=== PATIENT | male | born 1950 | race Caucasian/White ===

== ENCOUNTER 2016-07-21 01:15 | Inpatient (IN) | payer MEDICARE ==
[~2016-07-21] VITALS: Ht 177.8 cm; Wt 92.5 kg
[2016-07-21] VITALS (21 sets, daily range): BP systolic 132–169; BP diastolic 58–98; PULSE 64–82; RESP 16–20; TEMP 98.3–98.8; O2SAT 94–98
[2016-07-21] MEDS ORDERED: ASPIRIN 325 MG TAB ONE (01:57)
[2016-07-21] MEDS ORDERED: NITROGLYCERIN 2% OINT 1 GM PACKET ONE (01:57)
[2016-07-21 02:58] LABS: APTT (PATIENT) 27.3 SEC (24.3-30.1); PROTHROMBIN TIME - PATIENT 10.8 SEC (9.8-11.6)
[2016-07-21 03:01] LABS: AUTOMATED NEUTROPHIL # 6.4 TH/MM3 (1.8-7.7); BASOPHIL # 0.1 TH/MM3 (0-0.2); EOSINOPHIL # 0.3 TH/MM3 (0-0.4); EOSINOPHIL % 2.6 % (0.0-4.0); HEMO FLAGS DIFF FINAL; LYMPH % 30.9 % (9.0-44.0); LYMPHOCYTE # 3.4 TH/MM3 (1.0-4.8); MEAN CELL VOLUME 83.8 FL (80.0-100.0); MEAN CORPUSCULAR HEMOGLOBIN 28.8 PG (27.0-34.0); MEAN CORPUSCULAR HGB CONC 34.4 % (32.0-36.0); MONO % 8.3 % (0.0-8.0); NEUT % 57.2 % (16.0-70.0); PLATELET COUNT 270 TH/MM3 (150-450); RED BLOOD COUNT 5.49 MIL/MM3 (4.50-5.90); RED CELL DISTRIBUTION WIDTH 14.2 % (11.6-17.2); WHITE BLOOD COUNT 11.1 TH/MM3 (4.0-11.0)
[2016-07-21 03:14] LABS: BLOOD UREA NITROGEN 23 MG/DL (7-18); GLOMERULAR FILTRATION RATE 44 ML/MIN (>89)
[2016-07-21 03:15] LABS: ALKALINE PHOSPHATASE 66 U/L (45-117); ALT (GPT) 56 U/L (12-78); ANION GAP 10 MEQ/L (5-15); AST (GOT) 31 U/L (15-37); BICARBONATE 26.4 MEQ/L (21.0-32.0); CHLORIDE 104 MEQ/L (98-107); CREATINE KINASE 190 U/L (39-308); POTASSIUM 3.6 MEQ/L (3.5-5.1); SODIUM (NA) 140 MEQ/L (136-145); TOTAL BILIRUBIN ADULT 0.3 MG/DL (0.2-1.0)
[2016-07-21] MEDS ORDERED: MORPHINE SULFATE 4 MG/ML INJ IV PRN (03:45)
[2016-07-21] MEDS ORDERED: ACETAMINOPHEN 325 MG TAB PO PRN (03:45)
[2016-07-21] MEDS ORDERED: BISACODYL 10 MG SUPP PR PRN (03:45)
[2016-07-21] MEDS ORDERED: SODIUM CHLORIDE 0.9% FLUSH 5 ML FLUSH FLUSH PRN (03:45)
[2016-07-21] MEDS ORDERED: ONDANSETRON HCL 4 MG/2 ML VIAL IVP PRN (03:45)
[2016-07-21] MEDS ORDERED: SIMV40TA PO (04:11)
[2016-07-21] MEDS ORDERED: FURO40TA PO (04:11)
[2016-07-21] MEDS ORDERED: ALPR0.25 PO (04:11)
[2016-07-21] MEDS ORDERED: FENO160T PO (04:11)
[2016-07-21] MEDS ORDERED: POTA-163 PO (04:11)
[2016-07-21] MEDS ORDERED: METO50TA PO (04:11)
[2016-07-21] MEDS ORDERED: AMLO10TA2 PO (04:11)
[2016-07-21] MEDS ORDERED: LISI40TA PO (04:11)
[2016-07-21] MEDS ORDERED: HYDR50TA15 PO (04:11)
--- NOTE | 2016-07-21 04:11 | PD ---
HPI Chief Complaint: Chest Pain Time Seen by Provider: 03:32 Travel History International Travel<30 days: No Contact w/Intl Traveler<30days: No Traveled to known affect area: No History of Present Illness HPI 66-year-old male presents from triage with complaint of chest pain that started today. He took an aspirin yesterday but has not taken one yet early this morning. 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 He states he recently moved here. He notes a bad heart attack in the 80s where he had to have angioplasty of his LAD and bypassing. He states that he had a heart workup in November that was okay with a stress test. He denies other concurrent complaints other than shortness of breath. Quality is pressure. Severity is moderate. Pain is worse with movement. He denies other modifying factors. PFSH Past Medical History Coronary Artery Disease: Yes Diabetes: Yes (type 2) Patient Takes Glucophage: No Hypertension: Yes Immunizations Current: Yes Myocardial Infarction: Yes Tetanus Vaccination: Unknown Influenza Vaccination: Yes Past Surgical History Coronary Artery Bypass Graft: Yes Social History Alcohol Use: No Tobacco Use: No Substance Use: No Allergies-Medications (Allergen,Severity, Reaction): Coded Allergies: No Known Allergies (Unverified , 07/21/16) Reported Meds & Prescriptions Reported Meds & Active Scripts Active Reported Alprazolam 0.25 Mg Tab 0.25 Mg PO Q6H PRN Potassium Chloride ER (Potassium Chloride) 20 Meq Tab 20 Meq PO DAILY Furosemide 40 Mg Tab 40 Mg PO DAILY Fenofibrate 160 Mg Tab 160 Mg PO DAILY Simvastatin 40 Mg Tab 40 Mg PO HS Amlodipine (Amlodipine Besylate) 10 Mg Tab 10 Mg PO DAILY Lisinopril 40 Mg Tab 40 Mg PO DAILY Metoprolol Tartrate 50 Mg Tab 50 Mg PO BID Hydralazine (Hydralazine HCl) 50 Mg Tab 50 Mg PO BID Take with a meal Review of Systems Except as stated in HPI: all other systems reviewed are Neg Physical Exam Narrative GENERAL: Well-nourished, well-developed patient. SKIN: Warm and dry. HEAD: Normocephalic and atraumatic. EYES: No injection or drainage. ENT: No nasal drainage noted. NECK: Supple, trachea midline. CARDIOVASCULAR: Regular rate and rhythm RESPIRATORY: Breath sounds equal bilaterally at apices. No accessory muscle use. GASTROINTESTINAL: Abdomen soft, non-tender, nondistended. NEUROLOGICAL: Awake and alert. Motor and sensory grossly within normal limits. Normal speech. Data Data Last Documented VS Vital Signs Date Time Temp Pulse Resp B/P Pulse Ox O2 Delivery O2 Flow Rate FiO2 07/21/16 02:00 67 18 98 Room Air 07/21/16 02:00 98.3 148/58 Orders Complete Blood Count With Diff (07/21/16 01:27) Creatine Kinase (Cpk) (07/21/16 01:27) Comprehensive Metabolic Panel (07/21/16 01:27) Troponin I (07/21/16 01:27) B-Type Natriuretic Peptide (07/21/16 01:27) Act Partial Throm Time (Ptt) (07/21/16 01:27) Prothrombin Time / Inr (Pt) (07/21/16 01:27) Admit Order (Ed Use Only) (07/21/16 03:32) Consult Cardiology (07/21/16 ) Labs Laboratory Tests Test 07/21/16 01:27 White Blood Count 11.1 TH/MM3 Red Blood Count 5.49 MIL/MM3 Hemoglobin 15.8 GM/DL Hematocrit 46.0 % Mean Corpuscular Volume 83.8 FL Mean Corpuscular Hemoglobin 28.8 PG Mean Corpuscular Hemoglobin 34.4 % Concent Red Cell Distribution Width 14.2 % Platelet Count 270 TH/MM3 Mean Platelet Volume 7.8 FL Neutrophils (%) (Auto) 57.2 % Lymphocytes (%) (Auto) 30.9 % Monocytes (%) (Auto) 8.3 % Eosinophils (%) (Auto) 2.6 % Basophils (%) (Auto) 1.0 % Neutrophils # (Auto) 6.4 TH/MM3 Lymphocytes # (Auto) 3.4 TH/MM3 Monocytes # (Auto) 0.9 TH/MM3 Eosinophils # (Auto) 0.3 TH/MM3 Basophils # (Auto) 0.1 TH/MM3 CBC Comment DIFF FINAL Differential Comment Prothrombin Time 10.8 SEC Prothromb Time International 1.0 RATIO Ratio Activated Partial 27.3 SEC Thromboplast Time Sodium Level 140 MEQ/L Potassium Level 3.6 MEQ/L Chloride Level 104 MEQ/L Carbon Dioxide Level 26.4 MEQ/L Anion Gap 10 MEQ/L Blood Urea Nitrogen 23 MG/DL Creatinine 1.59 MG/DL Estimat Glomerular Filtration 44 ML/MIN Rate Random Glucose 158 MG/DL Calcium Level 9.5 MG/DL Total Bilirubin 0.3 MG/DL Aspartate Amino Transf 31 U/L (AST/SGOT) Alanine Aminotransferase 56 U/L (ALT/SGPT) Alkaline Phosphatase 66 U/L Total Creatine Kinase 190 U/L Troponin I 0.27 NG/ML Total Protein 8.5 GM/DL Albumin 4.1 GM/DL MDM Medical Decision Making Medical Screen Exam Complete: Yes Emergency Medical Condition: Yes Medical Record Reviewed: Yes (past history confirmed) Interpretation(s) EKG shows normal sinus rhythm at 80 with minimal elevation in lead 3, T wave inversion in aVL CBC & BMP Diagram 07/21/16 01:27 Troponin is elevated at 0.27 Chest x-ray without emergent findings Differential Diagnosis AL, musculoskeletal, gastritis, heart failure.... Narrative Course Will check blood work, chest x-ray, EKG and dose with aspirin and nitroglycerin and reevaluate on reevaluation feeling better, will discuss with his hip hop dancer and admit, patient updated and agrees to plan Physician Communication Physician Communication dr stratton who is covering requests heparin and consult placed to them, will see in am dr kearns agrees to admit Diagnosis Primary Impression: Unstable angina Admitting Information Admitting Physician Requests: Admit Sulma Bertrand MD Jul 21, 2016 04:11
[2016-07-21] MEDS ORDERED: HEPARIN-D5W INJ 250 ML IV SCH (04:15)
[2016-07-21] MEDS ORDERED: HEPARIN SODIUM - IV 10,000 UNITS/10 ML VIAL IV ONE (04:15)
[2016-07-21] MEDS: SODIUM CHLOR 0.9% 1000 ML INJ 1,000 ML IV SCH ×3 (04:22→23:43)
--- NOTE | 2016-07-21 04:35 | HHI.HP ---
[facility] Tiffanie Mcintosh MD Admission Diagnosis unstable angina Diagnoses: (1) Unstable angina Diagnosis: Principal (2) Renal insufficiency Diagnosis: Principal (3) HTN (hypertension) Diagnosis: Principal (4) DM (diabetes mellitus) Diagnosis: Principal Travel History International Travel<30 Days: No Contact w/Intl Traveler <30 Da: No Traveled to Known Affected Are: No History of Present Illness This is a 66-year-old male with a PMH of HTN, CAD s/p CABG and DM who came to the ER w/ complaints of chest pain starting yesterday morning. Took ASA at that time w/ some improvement, however symptoms recurred today. No associated SOB or cough. Follows w/ Dr. Denney as outpatient w/ Stress Test 11/2015 negative per patient. S/p ASA and NTG in ER w/ significant improvement, currently chest pain free. On arrival, BP 148/58, HR 67, O2 sat 98% on RA, Afebrile. WBC 11.1. Creatinine 1.59, no previous labs for comparison. Troponin 0.27. Dr. Latif consulted by ER physician, recommended admission for further cardiac work up and Heparin gtt. Review of Systems Other ROS: 14 point review of systems otherwise negative. Past Family Social History Past Medical History PMH: HTN, CAD s/p CABG and DM Past Surgical History PAST SURGICAL HISTORY: CABG Allergies: Coded Allergies: No Known Allergies (Unverified , 07/21/16) Family History PAST FAMILY HISTORY: Reviewed, positive for DM and CAD. Social History PAST SOCIAL HISTORY: Negative for alcohol, tobacco or drugs. Physical Exam Vital Signs Vital Signs Date Time Temp Pulse Resp B/P Pulse Ox O2 Delivery O2 Flow Rate FiO2 07/21/16 04:13 71 16 140/85 98 Room Air 07/21/16 02:00 67 18 98 Room Air 07/21/16 02:00 98.3 67 18 148/58 97 Room Air Physical Exam PE: GENERAL: Pleasant middle-aged white male in no acute distress. HEENT: PERRLA, EOMI. No scleral icterus or conjunctival pallor. No lid lag or facial droop. CARDIOVASCULAR: Regular rate and rhythm. No obvious murmurs to auscultation. No chest tenderness to palpation. RESPIRATORY: No obvious rhonchi or wheezing. Clear to auscultation. Breath sounds equal bilaterally. GASTROINTESTINAL: Abdomen soft, non-tender, nondistended. BS normal. MUSCULOSKELETAL: Extremities without clubbing, cyanosis, or edema. No obvious deformities. NEUROLOGICAL: Awake, alert and oriented x4. No focal neurologic deficits. Moving both upper and lower extremities spontaneously. Laboratory Laboratory Tests Test 07/21/16 01:27 White Blood Count 11.1 Red Blood Count 5.49 Hemoglobin 15.8 Hematocrit 46.0 Mean Corpuscular Volume 83.8 Mean Corpuscular Hemoglobin 28.8 Mean Corpuscular Hemoglobin 34.4 Concent Red Cell Distribution Width 14.2 Platelet Count 270 Mean Platelet Volume 7.8 Neutrophils (%) (Auto) 57.2 Lymphocytes (%) (Auto) 30.9 Monocytes (%) (Auto) 8.3 Eosinophils (%) (Auto) 2.6 Basophils (%) (Auto) 1.0 Neutrophils # (Auto) 6.4 Lymphocytes # (Auto) 3.4 Monocytes # (Auto) 0.9 Eosinophils # (Auto) 0.3 Basophils # (Auto) 0.1 CBC Comment DIFF FINAL Differential Comment Prothrombin Time 10.8 Prothromb Time International 1.0 Ratio Activated Partial 27.3 Thromboplast Time Sodium Level 140 Potassium Level 3.6 Chloride Level 104 Carbon Dioxide Level 26.4 Anion Gap 10 Blood Urea Nitrogen 23 Creatinine 1.59 Estimat Glomerular Filtration 44 Rate Random Glucose 158 Calcium Level 9.5 Total Bilirubin 0.3 Aspartate Amino Transf 31 (AST/SGOT) Alanine Aminotransferase 56 (ALT/SGPT) Alkaline Phosphatase 66 Total Creatine Kinase 190 Troponin I 0.27 Total Protein 8.5 Albumin 4.1 Result Diagram: 07/21/1612607/21/16126 Assessment and Plan Problem List: (1) Unstable angina ICD Code: I20.0 Status: Acute (2) Renal insufficiency ICD Code: N28.9 Status: Acute (3) HTN (hypertension) ICD Code: I10 Status: Acute (4) DM (diabetes mellitus) ICD Code: E11.9 Status: Acute Assessment and Plan A/P: 1. Unstable Angina: c/o chest pain x1 day, s/p ASA/NTG w/ improvement. Trop 0.27, EKG w/ no acute findings. Follows w/ Dr. Denney, Dr. Latif consulted by ER physician, recommended Heparin gtt, started in ER. Currently chest pain free. Check serial cardiac enzymes. NTG/Morphine prn. Resume home Metoprolol , ASA, Statin. 2. Renal Insufficiency: Creatinine 1.59, no previous labs for comparison. Will monitor, repeat labs in am. Hold Lisinopril 3. HTN: BP 140's systolic. Resume home medications. 4. DM: Sliding scale w/ Accu-Cheks. Check Hgb A1c. 5. DVT Prophylaxis: Heparin gtt 6. Social work for d/c planning as needed. 7. Case discussed w/ ER physician at length. Physician Certification 2 Midnight Certification Type: Admission for Inpatient Services Order for Inpatient Services The services are ordered in accordance with Medicare regulations or non- Medicare payer requirements, as applicable. In the case of services not specified as inpatient-only, they are appropriately provided as inpatient services in accordance with the 2-midnight benchmark. Estimated LOS (days): 2 days is the estimated time the patient will need to remain in the hospital, assuming treatment plan goals are met and no additional complications. Post-Hospital Plan: Home Diana Desir MD Jul 21, 2016 04:35
[2016-07-21 07:22] LABS: HDL CHOLESTEROL 42.1 MG/DL (40.0-60.0); LDL CHOLESTEROL 46 MG/DL (0-99)
[2016-07-21] MEDS: SODIUM CHLORIDE 0.9% FLUSH 5 ML FLUSH FLUSH SCH ×2 (09:00→21:08)
[2016-07-21] MEDS ORDERED: METOPROLOL TARTRATE 25 MG TAB PO SCH (09:00)
[2016-07-21] MEDS ORDERED: PRAVASTATIN SOD 40 MG TAB PO SCH (09:00)
[2016-07-21] MEDS ORDERED: FUROSEMIDE 40 MG TAB PO SCH (09:00)
--- NOTE | 2016-07-21 09:57 | RADRPT ---
EXAM DATE/TIME: 07/21/2016 02:16 [place] COMPARISON: No previous studies available for comparison. INDICATIONS : Chest pains. MEDICAL HISTORY : Myocardial infarction. SURGICAL HISTORY : CABG. ENCOUNTER: Initial ACUITY: 1 day PAIN SCORE: 8/10 LOCATION: Left chest FINDINGS: A single view of the chest demonstrates the lungs to be symmetrically aerated without evidence of mas s, infiltrate or effusion. The heart is normal size. Lower tortuosity descending thoracic aorta. O sseous structures are intact. Evidence of prior median sternotomy with intact sternal wire sutures. CONCLUSION: The lungs are clear. Ranjan Crain MD on July 21, 2016 at 2:30 Board Certified Radiologist. This report was verified electronically.
[2016-07-21] MEDS: ASPIRIN EC 81 MG TABEC PO SCH (09:58)
[2016-07-21] MEDS: METOPROLOL TARTRATE 50 MG TAB PO SCH ×2 (09:58→21:08)
[2016-07-21] MEDS: hydrALAZINE HCL 50 MG TAB PO SCH ×2 (09:58→21:08)
[2016-07-21] MEDS ORDERED: HEPARIN SODIUM - IV 10,000 UNITS/10 ML VIAL IV PRN (10:15)
--- NOTE | 2016-07-21 11:21 | HHI.FPPN ---
Subjective Remarks Vital signs stable. Patient no longer has chest pain, it was relieved with nitroglycerin patch. He denies any shortness of breath or diaphoresis. ( Lulu Watkins MD R3) Objective Vitals Vital Signs Date Time Temp Pulse Resp B/P Pulse Ox O2 Delivery O2 Flow Rate FiO2 07/21/16 09:00 70 18 150/98 97 Room Air 07/21/16 08:00 77 20 167/97 96 Room Air 07/21/16 07:16 66 20 145/97 95 Room Air 07/21/16 06:13 66 16 132/71 97 Room Air 07/21/16 04:13 71 16 140/85 98 Room Air 07/21/16 02:00 67 18 98 Room Air 07/21/16 02:00 98.3 67 18 148/58 97 Room Air I/O 07/20/16 07/20/16 07/20/16 07/21/16 07/21/16 07/21/16 07:00 15:00 23:00 07:00 15:00 23:00 Intake Total 240 ml Balance 240 ml Intake Oral 240 ml (Lulu Watkins MD R3) Result Diagram: 07/21/1612607/21/16 0127 Objective Remarks Gen.: No acute distress Head: Normocephalic. Atraumatic. EENT: Pupils equal round and reactive to light. Nose without drainage. Airway intact. Throat without injection. Cardiovascular: Regular rate and rhythm. No murmurs, rubs or gallops. Respiratory: Lungs clear to auscultation bilaterally. No wheezes or rhonchi. Abdomen: Soft, nontender, nondistended. No peritoneal signs. Musculoskeletal: No gross deformities. No edema. Skin: No obvious rashes or erythema. Neuro: Sensory and motor grossly intact. Cranial nerves II through XII grossly intact. Psych: Appropriate mood and affect (Lulu Watkins MD R3) A/P Assessment and Plan 66-year-old male with a past medical history significant for hypertension, coronary artery disease status post CABG and multiple cardiac catheterizations and diabetes mellitus presents to the emergency department with unstable angina. 1. NSTEMI: Troponin 0.27, 4.44. Cardiology consulted, recommended heparin drip. Patient's chest pain relieved with nitroglycerin patch. Patient is followed by Dr. Denney. 2. ANANT: Creatinine 1.59, baseline unknown. Holding lisinopril. 3. Hypertension: Resume home medications 4. Diabetes mellitus: Sliding scale 5. FEN Fluids: Normal saline at 100 cc/hour Diet: Nothing by mouth Electrolytes: Replete when necessary DVT prophylaxis: Heparin drip (Lulu Watkins MD R3) Problem List: (1) Renal insufficiency Status: Acute (2) HTN (hypertension) Status: Chronic (3) DM (diabetes mellitus) Status: Chronic (4) NSTEMI (non-ST elevated myocardial infarction) Status: Acute (Lulu Watkins MD R3) Lulu Watkins MD R3 Jul 21, 2016 11:21 Román Covarrubias MD Jul 21, 2016 15:33
[2016-07-21 11:32] LABS: APTT (PATIENT) 36.6 SEC (24.3-30.1)
[2016-07-21 12:47] LABS: HEMOGLOBIN A1a 0.9 %; HEMOGLOBIN A1b 2.2 %; HEMOGLOBIN Ao 82.4 %; HEMOGLOBIN LA1C 2.6 %; HEMOGLOBIN P3 4.6 %
[2016-07-21] MEDS: HEPARIN SODIUM - IV 10,000 UNITS/10 ML VIAL IV PRN ×2 (12:55→23:34)
--- NOTE | 2016-07-21 14:24 | EKG ---
Date Performed: 07/21/2016 Time Performed: 09:46:24 PTAGE: 66 years EKG: Sinus rhythm MINIMAL VOLTAGE CRITERIA FOR LVH, CONSIDER NORMAL VARIANT MODERATE T-WAVE ABNORMALITY, CONSIDER LATE RAL ISCHEMIA VS SECONDARY CHANGES OF LVH ABNORMAL ECG Compared to the PREVIOUS TRACING from 07/21/16 at 01:14, no significant change DOCTOR: Gus Stinson Interpretating Date/Time 07/21/2016 14:23:55
[2016-07-21] MEDS ORDERED: CLOPIDOGREL 75 MG TAB PO ONE (15:00)
--- NOTE | 2016-07-21 15:05 | MB ---
cc: LEIDY ALEJANDRO M.D. DATE OF CONSULTATION: 07/21/2016. REASON FOR CONSULTATION: Chest pain. REQUESTING PHYSICIAN: Dr. Caldwell. HISTORY OF PRESENT ILLNESS: The patient is a very pleasant 66-year-old male who noted some pressure in his chest yesterday shortly after lunch. He did not pay too much attention to it but later that night it became more severe. He was somewhat short of breath. It was not pleuritic. It did not radiate but he did have a funny feeling in his left hand. He then presented to the emergency room. He was given nitroglycerin with improvement. He did have elevation of troponin at 0.27 and followup is 4.44. REVIEW OF SYSTEMS: His electrocardiogram showed nonspecific ST and T-wave changes with criteria for left ventricular hypertrophy. CARDIAC HISTORY: The patient's cardiac history dates to 1987. He states that he had chest pain and had a myocardial infarction at that time. He was treated with tPA and then angioplasty. He states he had an intraaortic balloon pump. This was all done in [place], [place]. He did well after, though in 2003 he had coronary bypass grafting x3 in [place], [place]. He states that he had a slight myocardial infarction in August of 2000. He had catheterization at that time and all the grafts were open and no culprit lesion was found. This was again done in [place]. He has recently moved to [place]. He has established with Dr. Denney. He states he had a nuclear stress test in November of 2015 in [place], which was unchanged from prior studies. He has not been having chest pains. ALLERGIES: NONE KNOWN. HOME MEDICATIONS: 1. Simvastatin 40 milligrams a day. 2. Amlodipine 10 milligrams a day. 3. Lisinopril 40 milligrams a day. 4. Metoprolol tartrate 50 milligrams twice a day. 5. Hydralazine 50 milligrams twice a day. 6. Fenofibrate 160 milligrams a day. 7. Furosemide 40 milligrams a day. 8. Potassium chloride 20 milliequivalents a day. 9. Alprazolam 0.25 milligrams PRN. 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 He never was a heavy smoker and stopped altogether in 1969. He does not drink alcohol. He is originally from [place]. Dr. Mcintosh is his primary care physician. He lives [facility]. FAMILY HISTORY: His mother of lymphoma at the age of 45 and his father of heart disease at the age of 54. PAST SURGICAL HISTORY:: 1. Tonsillectomy. 2. He has had some lesions taken office larynx; these were not malignant. REVIEW OF SYSTEMS: CONSTITUTIONAL: Weight stable. HEAD, EYES, EARS, NOSE, THROAT: negative except for the larynx as described above. RESPIRATORY: No history of COPD. GI: He states he has small gallstones in his gallbladder. : He has stage III chronic kidney disease. ENDOCRINE: Positive for diabetes. He has had no cancer. No strokes or definite TIAs. MUSCULOSKELETAL: Rotator cuff problem on the left which is partially torn. CARDIOVASCULAR: In addition to present illness, no history of congestive heart failure. No history of ICD. Positive for hypertension. He has had a history of low HDL and elevated triglycerides. PHYSICAL EXAMINATION: GENERAL: On examination, a pleasant cooperative male resting comfortably in no distress. HEAD, EYES, EARS, NOSE, THROAT: Pupils reactive to light. Fundi not examined. The tongue is moist and midline. LUNGS: Clear. CARDIAC: Cardiac exam showed a regular rhythm. No murmurs heard. ABDOMEN: The abdomen is soft. No liver or spleen palpable. EXTREMITIES: He has good peripheral pulses with no edema. LABORATORY STUDIES: Laboratory shows a sodium OF 140, potassium 3.6, BUN 23, creatinine 1.59, GFR of 44, triglycerides 392, cholesterol 166, LDL 46, HDL 42. IMAGING STUDIES: Chest x-ray shows no active disease. IMPRESSION: 1. NSTEMI. 2. Coronary artery disease with prior anterior myocardial infarction and coronary artery bypass grafting X3 in 2003. 3. Vlb-zvaoxdn-mqdvllisa diabetes. 4. Hyperlipidemia. 5. Partially torn rotator cuff. 6. Hypertension. PLAN: 1. The patient is presently on heparin as well as baseline medications. 2. I will add Clopidogrel. 3. He will be NPO after midnight. 4. Dr. Denney will see him and probably schedule cardiac catheterization. Thank you for asking us to see him. MD TESS Childs/NAVA /2:35 PM /2:52 PM
--- NOTE | 2016-07-21 15:12 | EKG ---
Date Performed: 07/21/2016 Time Performed: 01:14:21 PTAGE: 66 years EKG: Sinus rhythm ST DEVIATION AND MODERATE T-WAVE ABNORMALITY, CONSIDER LATERAL ISCHEMIA ABNORMAL ECG NO PREVIOUS TRACING DOCTOR: Gus Stinson Interpretating Date/Time 07/21/2016 15:12:16
[2016-07-21 17:01] LABS: APTT (PATIENT) 40.8 SEC (24.3-30.1)
[2016-07-21] MEDS: ACETAMINOPHEN/HYDROcodone 325 MG/5 MG TAB PO PRN (21:07)
[2016-07-21] MEDS: NITROGLYCERIN 2% OINT 1 GM PACKET TOPICAL PRN (21:08)
[2016-07-21] MEDS: PRAVASTATIN SOD 40 MG TAB PO SCH (21:08)
[2016-07-21] MEDS: ALPRAZolam 0.25 MG TAB PO PRN (21:22)
[2016-07-21 23:13] LABS: APTT (PATIENT) 36.8 SEC (24.3-30.1)
[2016-07-22] VITALS (13 sets, daily range): BP systolic 133–162; BP diastolic 76–103; PULSE 63–84; RESP 16–18; TEMP 98.1–98.8; O2SAT 96–98
[2016-07-22 05:46] LABS: AUTOMATED NEUTROPHIL # 6.1 TH/MM3 (1.8-7.7); BASOPHIL # 0.1 TH/MM3 (0-0.2); BASOPHIL % 1.3 % (0.0-2.0); EOSINOPHIL # 0.3 TH/MM3 (0-0.4); HEMATOCRIT 39.5 % (39.0-51.0); HEMO FLAGS DIFF FINAL; LYMPH % 22.3 % (9.0-44.0); LYMPHOCYTE # 2.1 TH/MM3 (1.0-4.8); MEAN CELL VOLUME 82.5 FL (80.0-100.0); MEAN CORPUSCULAR HEMOGLOBIN 28.2 PG (27.0-34.0); MEAN CORPUSCULAR HGB CONC 34.1 % (32.0-36.0); MONO % 8.9 % (0.0-8.0); NEUT % 64.5 % (16.0-70.0); PLATELET COUNT 231 TH/MM3 (150-450); RED BLOOD COUNT 4.79 MIL/MM3 (4.50-5.90); RED CELL DISTRIBUTION WIDTH 14.2 % (11.6-17.2); WHITE BLOOD COUNT 9.4 TH/MM3 (4.0-11.0)
[2016-07-22 05:54] LABS: APTT (PATIENT) 41.1 SEC (24.3-30.1)
[2016-07-22 06:19] LABS: ALKALINE PHOSPHATASE 51 U/L (45-117); ALT (GPT) 49 U/L (12-78); ANION GAP 10 MEQ/L (5-15); AST (GOT) 46 U/L (15-37); BLOOD UREA NITROGEN 17 MG/DL (7-18); CHLORIDE 107 MEQ/L (98-107); GLOMERULAR FILTRATION RATE 55 ML/MIN (>89); POTASSIUM 3.2 MEQ/L (3.5-5.1); SODIUM (NA) 142 MEQ/L (136-145); TOTAL BILIRUBIN ADULT 0.5 MG/DL (0.2-1.0)
[2016-07-22] MEDS: ASPIRIN EC 81 MG TABEC PO SCH (08:27)
[2016-07-22] MEDS: METOPROLOL TARTRATE 50 MG TAB PO SCH ×2 (08:27→21:00)
[2016-07-22] MEDS: hydrALAZINE HCL 50 MG TAB PO SCH ×2 (08:28→21:00)
--- NOTE | 2016-07-22 08:32 | HHI.PR ---
Subjective Remarks Follow-up for non-STEMI. Patient is currently waiting for cardiac cath. Denies any chest pain, SOB, fever, chills. Objective Vitals Vital Signs Date Time Temp Pulse Resp B/P Pulse Ox O2 Delivery O2 Flow Rate FiO2 07/22/16 06:00 71 07/22/16 05:00 72 07/22/16 04:00 98.8 78 16 162/103 98 07/22/16 04:00 78 07/22/16 03:00 68 07/22/16 02:00 66 07/22/16 01:00 68 07/22/16 00:00 63 07/22/16 00:00 98.3 71 16 133/76 98 07/21/16 23:00 77 07/21/16 22:00 68 07/21/16 21:00 82 07/21/16 20:00 98.8 75 16 137/89 95 07/21/16 20:00 72 07/21/16 19:00 64 07/21/16 18:00 65 07/21/16 17:00 69 07/21/16 16:00 72 07/21/16 15:00 70 07/21/16 15:00 98.3 67 16 134/80 94 07/21/16 14:00 70 07/21/16 13:43 65 07/21/16 13:32 98.3 68 16 142/91 95 07/21/16 12:00 68 17 167/91 96 Room Air 07/21/16 11:00 70 20 169/89 96 Room Air 07/21/16 10:00 72 18 166/95 95 Room Air 07/21/16 09:00 70 18 150/98 97 Room Air I/O 07/21/16 07/21/16 07/21/16 07/22/16 07/22/16 07/22/16 07:00 15:00 23:00 07:00 15:00 23:00 Intake Total 240 ml 240 ml 1554 ml Output Total 850 ml 2350 ml Balance 240 ml -610 ml -796 ml Intake Oral 240 ml 240 ml 240 ml IV Total 1314 ml Output Urine Total 850 ml 2350 ml # Voids 3 Result Diagram: 07/22/16 0529 07/22/16 0529 Imaging Last Impressions Chest X-Ray 07/21/16 0000 Signed Impressions: Service Date/Time: Thursday, July 21, 2016 02:16 - CONCLUSION: The lungs are clear. Ranjan Crain MD Objective Remarks GENERAL: SKIN: Warm and dry. HEAD: Normocephalic. EYES: No scleral icterus. No injection or drainage. NECK: Supple, trachea midline. No JVD or lymphadenopathy. CARDIOVASCULAR: Regular rate and rhythm without murmurs, gallops, or rubs. RESPIRATORY: Breath sounds equal bilaterally. No accessory muscle use. GASTROINTESTINAL: Abdomen soft, non-tender, nondistended. MUSCULOSKELETAL: No cyanosis, or edema. BACK: Nontender without obvious deformity. No CVA tenderness. Procedures None. A/P Problem List: (1) Unstable angina ICD Code: I20.0 Status: Acute (2) Renal insufficiency ICD Code: N28.9 Status: Acute (3) HTN (hypertension) ICD Code: I10 Status: Chronic (4) DM (diabetes mellitus) ICD Code: E11.9 Status: Chronic Assessment and Plan Mr. Cash is a 66-year-old male with a PMH of HTN, CAD s/p CABG and DM who came to the ER w/ complaints of chest pain starting morning of 07/20/2016. Follows w/ Dr. Denney as outpatient w/ Stress Test 11/2015 negative per patient. S/p ASA and NTG in ER w/ significant improvement. On arrival, BP 148/58, HR 67 , O2 sat 98% on RA, Afebrile. WBC 11.1. Creatinine 1.59, no previous labs for comparison. Troponin 0.27. Dr. Latif (Cardiology) evaluated patient on 2016. Patient was already on heparin drip. Clopidogrel was added. Cardiac cath on 07/22/2016. NSTEMI: Troponin 0.27, 4.44, 3.50, 2.68. Cardiology consulted, recommended heparin drip. - Patient's chest pain relieved with nitroglycerin patch. Patient is followed by Dr. Denney. - Continue Aspirin 81mg Qday, Metoprolol, Imdur, Statin. ANANT: Creatinine 1.59, baseline unknown. Improved to 1.30. Hypertension: Continue Amlodipine 10mg Qday, Metoprolol 50mg BID, Hydralazine 50mg BID. Full code. Heparin drip. Karli Sorto DO Jul 22, 2016 08:32 Karli Sorto DO Jul 22, 2016 8:32 am
[2016-07-22] MEDS ORDERED: POTASSIUM CHLORIDE 20 MEQ CONTROLLED RELEASE TAB PO ONE (09:15)
[2016-07-22 10:52] LABS: APTT (PATIENT) 41.5 SEC (24.3-30.1)
[2016-07-22] MEDS ORDERED: DEXT 5%-NACL 0.9% 1000 ML INJ 1,000 ML IV SCH (11:00)
[2016-07-22] MEDS ORDERED: TIROFIBAN INFUSION 12.5 MG/NS 250 ML IV SCH (12:30)
[2016-07-22] MEDS ORDERED: TIROFIBAN BOLUS 5 MG/NS 100 ML IV ONE (12:30)
[2016-07-22] MEDS ORDERED: MIDAZOLAM HCL 2 MG/2 ML VIAL IV ONE (12:30)
[2016-07-22] MEDS: NITROGLYCERIN 2% OINT 1 GM PACKET TOPICAL PRN (13:14)
[2016-07-22] MEDS ORDERED: HEPARIN-NS/PF INJ 500 ML ONE (16:26)
[2016-07-22] MEDS ORDERED: diphenhydrAMINE HCL 50 MG/ML VIAL ONE ×2 (16:39→16:42)
[2016-07-22] MEDS ORDERED: MIDAZOLAM HCL 2 MG/2 ML VIAL ONE ×2 (16:44→16:52)
[2016-07-22] MEDS ORDERED: HEPARIN SODIUM - IV 10,000 UNITS/10 ML VIAL ONE (17:33)
[2016-07-22] MEDS ORDERED: PRASUGREL 10 MG TAB ONE (17:52)
[2016-07-22] MEDS ORDERED: IOHEXOL 350 MG/ML 100 ML BTL (for Cath Lab) OTHER ONE (18:00)
[2016-07-22] MEDS: ISOSORBIDE MONONITRATE 60 MG TAB PO SCH (20:30)
[2016-07-22] MEDS: PRAVASTATIN SOD 40 MG TAB PO SCH (21:00)
[2016-07-22] MEDS: SODIUM CHLOR 0.9% 1000 ML INJ 1,000 ML IV SCH (21:00)
[2016-07-22] MEDS: ALPRAZolam 0.25 MG TAB PO PRN (21:00)
[2016-07-23] VITALS (18 sets, daily range): BP systolic 107–147; BP diastolic 65–96; PULSE 62–82; RESP 16–20; TEMP 97.8–98.2; O2SAT 96–97
[2016-07-23] MEDS: ACETAMINOPHEN/HYDROcodone 325 MG/5 MG TAB PO PRN (01:06)
[2016-07-23] MEDS ORDERED: ZOLPIDEM TARTRATE 5 MG TAB PO SCH (01:45)
[2016-07-23 05:55] LABS: AUTOMATED NEUTROPHIL # 6.3 TH/MM3 (1.8-7.7); BASOPHIL # 0.1 TH/MM3 (0-0.2); BASOPHIL % 0.6 % (0.0-2.0); EOSINOPHIL # 0.1 TH/MM3 (0-0.4); EOSINOPHIL % 1.4 % (0.0-4.0); HEMATOCRIT 38.7 % (39.0-51.0); HEMO FLAGS DIFF FINAL; LYMPH % 21.6 % (9.0-44.0); LYMPHOCYTE # 2.1 TH/MM3 (1.0-4.8); MEAN CELL VOLUME 82.5 FL (80.0-100.0); MEAN CORPUSCULAR HEMOGLOBIN 28.5 PG (27.0-34.0); MEAN CORPUSCULAR HGB CONC 34.5 % (32.0-36.0); MONO % 10.2 % (0.0-8.0); NEUT % 66.2 % (16.0-70.0); PLATELET COUNT 245 TH/MM3 (150-450); RED BLOOD COUNT 4.69 MIL/MM3 (4.50-5.90); RED CELL DISTRIBUTION WIDTH 14.1 % (11.6-17.2); WHITE BLOOD COUNT 9.5 TH/MM3 (4.0-11.0)
[2016-07-23] MEDS: SODIUM CHLOR 0.9% 1000 ML INJ 1,000 ML IV SCH (06:26)
[2016-07-23 06:28] LABS: BICARBONATE 23.3 MEQ/L (21.0-32.0); POTASSIUM 3.6 MEQ/L (3.5-5.1)
[2016-07-23] MEDS ORDERED: PRASUGREL 10 MG TAB PO SCH (09:00)
[2016-07-23] MEDS: METOPROLOL TARTRATE 50 MG TAB PO SCH (09:17)
[2016-07-23] MEDS: ASPIRIN EC 81 MG TABEC PO SCH (09:17)
[2016-07-23] MEDS: hydrALAZINE HCL 50 MG TAB PO SCH (09:18)
[2016-07-23] MEDS: ISOSORBIDE MONONITRATE 60 MG TAB PO SCH (09:18)
--- NOTE | 2016-07-23 09:56 | HHI.PR ---
Subjective Remarks Follow-up for unstable angina status post cardiac catheterization with a stent placed. Patient is currently doing well. However, last night patient had a lot of bleeding from his cardiac catheter site in the groin area. Despite applying pressure including sandbagged his bleeding did not stop easily. Finally at 3 AM his bleeding stopped. Currently no sign of bleeding. However patient wants to go home soon as cardiology clears him for discharge. Objective Vitals Vital Signs Date Time Temp Pulse Resp B/P Pulse Ox O2 Delivery O2 Flow Rate FiO2 07/23/16 06:00 66 07/23/16 05:00 66 07/23/16 04:00 63 07/23/16 04:00 62 16 138/90 97 07/23/16 03:00 72 07/23/16 02:00 77 07/23/16 01:00 70 07/23/16 00:00 69 07/23/16 00:00 98.2 66 18 139/94 96 07/22/16 23:00 70 07/22/16 22:00 76 07/22/16 21:00 84 07/22/16 20:00 80 07/22/16 20:00 98.1 82 18 150/99 96 07/22/16 11:30 76 07/22/16 11:30 98.2 78 18 137/91 96 I/O 07/22/16 07/22/16 07/22/16 07/23/16 07/23/16 07/23/16 07:00 15:00 23:00 07:00 15:00 23:00 Intake Total 1554 ml 1354 ml Output Total 2350 ml 1800 ml Balance -796 ml -446 ml Intake Oral 240 ml 240 ml IV Total 1314 ml 1114 ml Output Urine Total 2350 ml 1800 ml Result Diagram: 07/23/16 0530 07/23/16 0530 Imaging Last Impressions Chest X-Ray 07/21/16 0000 Signed Impressions: Service Date/Time: Thursday, July 21, 2016 02:16 - CONCLUSION: The lungs are clear. Ranjan Crain MD Objective Remarks GENERAL: Alert, oriented 3, NAD SKIN: Warm and dry. HEAD: Normocephalic. EYES: No scleral icterus. No injection or drainage. NECK: Supple, trachea midline. No JVD or lymphadenopathy. CARDIOVASCULAR: Regular rate and rhythm without murmurs, gallops, or rubs. RESPIRATORY: Breath sounds equal bilaterally. No accessory muscle use. GASTROINTESTINAL: Abdomen soft, non-tender, nondistended. MUSCULOSKELETAL: No cyanosis, or edema. Cath site looks unremarkable currently. No active bleeding. BACK: Nontender without obvious deformity. No CVA tenderness. Procedures Cardiac cath status post stent placement A/P Problem List: (1) Unstable angina ICD Code: I20.0 Status: Acute (2) Renal insufficiency ICD Code: N28.9 Status: Acute (3) HTN (hypertension) ICD Code: I10 Status: Chronic (4) DM (diabetes mellitus) ICD Code: E11.9 Status: Chronic Assessment and Plan Mr. Cash is a 66-year-old male with a PMH of HTN, CAD s/p CABG and DM who came to the ER w/ complaints of chest pain starting morning of 07/20/2016. Follows w/ Dr. Denney as outpatient w/ Stress Test 11/2015 negative per patient. S/p ASA and NTG in ER w/ significant improvement. On arrival, BP 148/58, HR 67 , O2 sat 98% on RA, Afebrile. WBC 11.1. Creatinine 1.59, no previous labs for comparison. Troponin 0.27. Dr. Latif (Cardiology) evaluated patient on 2016. Patient was already on heparin drip. Clopidogrel was added. Cardiac cath on 07/22/2016. NSTEMI: Troponin 0.27, 4.44, 3.50, 2.68. - Patient's chest pain relieved with nitroglycerin patch. Patient is followed by Dr. Denney. - Continue Aspirin 81mg Qday, Metoprolol, Imdur, Statin. Consider switching from Pravastatin to Lipitor. - Status post cardiac catheterization with stent placement. ANANT: Creatinine 1.59, baseline unknown. Improved to 1.30 --> 1.38. Hypertension: Continue Amlodipine 10mg Qday, Metoprolol 50mg BID, Hydralazine 50mg BID. Full code. Currently on Aggrastat drip. Karli Sorto DO Jul 23, 2016 9:56 am
--- NOTE | 2016-07-23 10:01 | MA ---
cc: PAXTON DENNEY M.D. DATE 07/22/2016 PROCEDURE 1. Left heart cath 2. Coronary angiogram 3. Saphenous vein angiogram to the distal RCA and saphenous vein angiogram to the OM of the LCX. 4. Left internal mammary arteriogram to the left anterior descending artery. 5. Percutaneous transluminal stenting of a proximal 70% hazy SVG disease to the LCX, OM. 6. Femoral arteriogram 7. Right femoral arteriotomy site closure using a StarClose device. HAZARDOUS MATERIALS WASTE TECHNICIAN Paxton Denney MD DATE OF PROCEDURE 07/22/2016 INDICATION Presentation with acute coronary syndrome with troponin elevation up to 4.4 and recurrent chest discomfort. EQUIPMENT USED A 6-Bolivian short sheath. 0.035 J-guidewire. 6-Bolivian JL-4 exchanged to a JL-5 to cannulate the left main because of a big aortic arch. The 6-Bolivian JR-4. A 6-Bolivian LCB guide with no side holes. A 0.014 ATW long marker wire. A 4.0 x 9 mm drug-eluting Resolute stent. The StarClose device. PROCEDURE After obtaining informed consent, the right groin was prepped in the usual sterile fashion. 15 cc of 1% lidocaine used for local anesthesia. Using the modified Seldinger technique, the right femoral artery was cannulated and a 6-Bolivian short sheath was inserted in the right femoral artery. Using the above-mentioned diagnostic catheters, selective coronary angiograms were performed. This was followed by saphenous vein angiograms to the LCX OM using the Fawn right catheter and also the left internal mammary artery to the LAD using the same catheter. The saphenous vein graft to the RCA was cannulated better using an AR mod 6-Bolivian diagnostic catheter. This was followed by a primary stenting of the 70% proximal SVG to the LCX disease of which a separate description will follow. At the end of procedure, the right femoral system was injected revealing no significant disease and a StarClose device was applied achieving adequate hemostasis. The patient tolerated the procedure well without acute complication at the time of dictation. CARDIAC CATHETERIZATION FINDINGS HEMODYNAMIC Aortic pressure was 160/96 mmHg. Mean aortic pressure was 117 mmHg. Left ventriculogram was not performed to compromise on contrast amount used because of a baseline creatinine around 1.4 in a diabetic with history of chronic kidney disease. CORONARIES Left main artery arose from the left sinus of Valsalva. This had mid 30% stenosis. Left circumflex artery branched from the left main artery. It gave a high obtuse marginal branch that tapered off quickly with significant moderate to severe distal disease. The circumflex after the origin of the first obtuse marginal branch had a hazy 60-70% disease, then mild diffuse irregularities. The mid obtuse marginal branch appeared totally occluded. The distal circumflex had 20-30% stenosis. It gave a distal PLV branch with mild diffuse irregularities that was a relatively small caliber vessel. Small distal OM branches had mild diffuse irregularities. Right coronary arose from the right sinus of Valsalve. This gave a high cornus branch that had mild luminal irregularities. The right coronary artery was totally occluded in the midportion with an 80-90% ostial RV branch disease. There was JANENE grade 0-1 flow and the mid to distal portion of the RCA and then totally occluded in the distal portion. There was likely a thrombus involved in this occlusion as well. Saphenous vein graft to the RCA was 100% occluded in the proximal area. Saphenous vein graft to the distal OM of the left circumflex had an ostial proximal 60-70% disease with haziness noted to be worse in the EDWARDS caudal views. It led to distal PLV/OM branch of the circumflex. This had a long plaque in the proximal to mid area on multiple angles plaque ranging between 50-90% retrogradely. It filled back the proximal part of this OM branch, however just proximal to the anastomosis, the OM branch had a 60-70% disease and then was subtotally occluded to feed another OM branch with mild luminal irregularities. The left anterior descending artery branched from the left main artery and was totally occluded proximally. Left internal mammary artery to the left anterior descending artery was widely patent. The LAD was relatively small caliber distally. It had diffuse plaque in the distal portion towards the apex ranging between 50-60%. The distal LAD appeared to supply collaterals to the PDA of the RCA. CONCLUSION OF THE CARDIAC CATHETERIZATION 1. Occluded proximal LAD with moderate to borderline significant proximal circumflex disease and occluded mid OM of the LCX. 2. Occluded mid RCA. 3. Occluded SVG to RCA. 4. Patent SUMNER to LAD with moderate distal LAD disease supplying collaterals to the PDA of the RCA. 5. Significant borderline significant disease in the proximal part of the SVG to the LCX OM which was stented in this procedure with significant diffuse tortuous disease in the obtuse marginal branch of the circumflex. 6. JANENE grade 3 flow distally in that OM branch, however. It was decided then to proceed with revascularization of the proximal SVG to the LCX OM because of the haziness and the disease noted and it was decided to do a primary stenting. REVASCULARIZATION OF THE SVG TO LCX OM An LCD 6-Bolivian guide was advanced cannulating the SVG to the LCX OM. A 0.014 ATW long marker wire was advanced, placed in the distal portion of the vein graft. Primary stenting using a 4.0 x 9 mm drug-eluting Resolute stent was performed with inflations to 12 atmospheres reducing the stenosis to 0% angiographically and it was decided to accept these results. By the time we stented the SVG to the LCX OM, we had already used 125 cc of contrast and he was pain-free on the table and it was decided to accept these results. He was started on aspirin and Effient. He will be followed closely as an outpatient if he has recurrent angina, we will consider further revascularization of the mid-LCX disease and also possibly the distal tortuous disease of the OM branch through the saphenous vein graft. MD ELIEL Jiménez/RADHA /6:18 PM /9:36 AM
[2016-07-23] MEDS ORDERED: ASPI81TA11 PO (10:08)
[2016-07-23] MEDS ORDERED: LISI-519 PO (10:08)
[2016-07-23] MEDS ORDERED: PRAS10TA PO (10:08)
--- NOTE | 2016-07-23 10:09 | HHI.DS ---
Discharge Summary Admission Date Jul 21, 2016 at 3:38 am Discharge Date: Jul 23, 2016 Admitting Diagnosis unstable angina (1) Unstable angina ICD Code: I20.0 (2) Renal insufficiency ICD Code: N28.9 (3) HTN (hypertension) ICD Code: I10 (4) DM (diabetes mellitus) ICD Code: E11.9 Procedures 07/22/2016 CONCLUSION OF THE CARDIAC CATHETERIZATION 1. Occluded proximal LAD with moderate to borderline significant proximal circumflex disease and occluded mid OM of the LCX. 2. Occluded mid RCA. 3. Occluded SVG to RCA. 4. Patent SUMNER to LAD with moderate distal LAD disease supplying collaterals to the PDA of the RCA. 5. Significant borderline significant disease in the proximal part of the SVG to the LCX OM which was stented in this procedure with significant diffuse tortuous disease in the obtuse marginal branch of the circumflex. 6. JANENE grade 3 flow distally in that OM branch, however. It was decided then to proceed with revascularization of the proximal SVG to the LCX OM because of the haziness and the disease noted and it was decided to do a primary stenting. REVASCULARIZATION OF THE SVG TO LCX OM An LCD 6-Belizean guide was advanced cannulating the SVG to the LCX OM. A 0.014 ATW long marker wire was advanced, placed in the distal portion of the vein graft. Primary stenting using a 4.0 x 9 mm drug-eluting Resolute stent was performed with inflations to 12 atmospheres reducing the stenosis to 0% angiographically and it was decided to accept these results. By the time we stented the SVG to the LCX OM, we had already used 125 cc of contrast and he was pain-free on the table and it was decided to accept these results. He was started on aspirin and Effient. Brief History - From Admission This is a 66-year-old male with a PMH of HTN, CAD s/p CABG and DM who came to the ER w/ complaints of chest pain starting yesterday morning. Took ASA at that time w/ some improvement, however symptoms recurred today. No associated SOB or cough. Follows w/ Dr. Denney as outpatient w/ Stress Test 11/2015 negative per patient. S/p ASA and NTG in ER w/ significant improvement, currently chest pain free. On arrival, BP 148/58, HR 67, O2 sat 98% on RA, Afebrile. WBC 11.1. Creatinine 1.59, no previous labs for comparison. Troponin 0.27. Dr. Latif consulted by ER physician, recommended admission for further cardiac work up and Heparin gtt. CBC/BMP: 07/23/16 0530 07/23/16 0530 Significant Findings Laboratory Tests Test 07/21/16 07/21/16 07/21/16 07/21/16 01:27 08:20 11:08 16:33 White Blood Count 11.1 TH/MM3 (4.0-11.0) Monocytes (%) (Auto) 8.3 % (0.0-8.0) Blood Urea Nitrogen 23 MG/DL (7-18) Creatinine 1.59 MG/DL (0.60-1.30) Estimat Glomerular Filtration 44 ML/MIN (>89) Rate Random Glucose 158 MG/DL (74-106) Hemoglobin A1c 6.7 % (4.3-6.0) Troponin I 0.27 NG/ML 4.44 NG/ML 3.50 NG/ML (0.02-0.05) (0.02-0.05) (0.02-0.05) Total Protein 8.5 GM/DL (6.4-8.2) Triglycerides Level 392 MG/DL (42-150) Activated Partial 36.6 SEC 40.8 SEC Thromboplast Time (24.3-30.1) (24.3-30.1) Test 07/21/16 07/22/16 07/22/16 07/23/16 22:39 05:29 10:16 05:30 Activated Partial 36.8 SEC 41.1 SEC 41.5 SEC Thromboplast Time (24.3-30.1) (24.3-30.1) (24.3-30.1) Monocytes (%) (Auto) 8.9 % (0.0-8.0) 10.2 % (0.0-8.0) Potassium Level 3.2 MEQ/L (3.5-5.1) Estimat Glomerular Filtration 55 ML/MIN (>89) 51 ML/MIN (>89) Rate Random Glucose 137 MG/DL 159 MG/DL (74-106) (74-106) Calcium Level 8.4 MG/DL (8.5-10.1) Aspartate Amino Transf 46 U/L (15-37) (AST/SGOT) Troponin I 2.68 NG/ML (0.02-0.05) Hematocrit 38.7 % (39.0-51.0) Monocytes # (Auto) 1.0 TH/MM3 (0-0.9) Chloride Level 109 MEQ/L (98-107) Creatinine 1.38 MG/DL (0.60-1.30) PE at Discharge GENERAL: Alert, oriented 3, NAD SKIN: Warm and dry. HEAD: Normocephalic. EYES: No scleral icterus. No injection or drainage. NECK: Supple, trachea midline. No JVD or lymphadenopathy. CARDIOVASCULAR: Regular rate and rhythm without murmurs, gallops, or rubs. RESPIRATORY: Breath sounds equal bilaterally. No accessory muscle use. GASTROINTESTINAL: Abdomen soft, non-tender, nondistended. MUSCULOSKELETAL: No cyanosis, or edema. Cath site looks unremarkable currently. No active bleeding. BACK: Nontender without obvious deformity. No CVA tenderness. Hospital Course Mr. Cash is a 66-year-old male with a PMH of HTN, CAD s/p CABG and DM who came to the ER w/ complaints of chest pain starting morning of 07/20/2016. Follows w/ Dr. Denney as outpatient w/ Stress Test 11/2015 negative per patient. S/p ASA and NTG in ER w/ significant improvement. On arrival, BP 148/58, HR 67 , O2 sat 98% on RA, Afebrile. WBC 11.1. Creatinine 1.59, no previous labs for comparison. Troponin 0.27. Dr. Latif (Cardiology) evaluated patient on 2016. Patient was already on heparin drip. Clopidogrel was added. Cardiac cath on 07/22/2016. NSTEMI: Troponin 0.27, 4.44, 3.50, 2.68. - Patient's chest pain relieved with nitroglycerin patch. Patient is followed by Dr. Denney. - Continue Aspirin 81mg Qday, Metoprolol, Imdur, Statin. Consider switching from Pravastatin to Lipitor. - Status post cardiac catheterization with stent placement. - Patient had bleeding overnight but no bleeding starting 3AM on 07/23/2016. Patient was eager to go home. - He was subsequently discharged home after cardiology cleared for discharge on 07/23/2016. ANANT: Creatinine 1.59, baseline unknown. Improved to 1.30 --> 1.38. Hypertension: Continue Amlodipine 10mg Qday, Metoprolol 50mg BID, Hydralazine 50mg BID. Pt Condition on Discharge: Good Discharge Disposition: Discharge Home Discharge Time: > 30 minutes Discharge Instructions DIET: Follow Instructions for: Heart Healthy Diet Activities you can perform: Regular-No Restrictions Follow up Referrals: Cardiology - 2 Weeks with Paxton Denney MD PCP Follow-up - 1 Week New Medications: Lisinopril (Lisinopril) 5 Mg Tab 5 MG PO DAILY Blood Pressure Management #[address] (Aspirin EC) 81 Mg Tabdr 81 MG PO DAILY Blood Clot Prevention #90 TAB Prasugrel (Effient) 10 Mg Tab 10 MG PO DAILY Blood Clot Prevention #90 TAB Continued Medications: Alprazolam (Alprazolam) 0.25 Mg Tab 0.25 MG PO Q6H PRN ANXIETY Ref 0 TAB Amlodipine (Amlodipine) 10 Mg Tab 10 MG PO DAILY Blood Pressure Management #30 Ref 0 TAB Fenofibrate (Fenofibrate) 160 Mg Tab 160 MG PO DAILY #30 Ref 0 TAB Furosemide (Furosemide) 40 Mg Tab 40 MG PO DAILY #30 Ref 0 TAB Hydralazine (Hydralazine) 50 Mg Tab 50 MG PO BID Take with a meal Blood Pressure Management Ref 0 TAB Metoprolol Tartrate (Metoprolol Tartrate) 50 Mg Tab 50 MG PO BID #60 Ref 0 TAB Potassium Chloride ER (Potassium Chloride ER) 20 Meq Tab 20 MEQ PO DAILY Electrolyte Replacement #30 Ref 0 TAB Simvastatin (Simvastatin) 40 Mg Tab 40 MG PO HS Cholesterol Management #30 Ref 0 TAB Discontinued Medications: Lisinopril (Lisinopril) 40 Mg Tab 40 MG PO DAILY Blood Pressure Management #30 Ref 0 TAB Karli Sorto DO Jul 23, 2016 10:09
--- NOTE | 2016-07-23 13:58 | EKG ---
Date Performed: 07/23/2016 Time Performed: 05:24:10 PTAGE: 66 years EKG: Sinus rhythm with borderline 1st degree A-V block Ant/septal and lateral ST-T changes may be due to myocardial is chemia Since previous tracing, no significant change noted Abnormal ECG PREVIOUS TRACING : 07/22/2016 11.14 DOCTOR: Alexander Mayberry Interpretating Date/Time 07/23/2016 13:56:02
--- NOTE | 2016-07-23 13:59 | EKG ---
Date Performed: 07/22/2016 Time Performed: 11:14:44 PTAGE: 66 years EKG: Sinus rhythm . Extensive ST-T changes may be due to myocardial ischemia Since previous tracing, no significant chinmay nge noted Abnormal ECG PREVIOUS TRACING : 07/21/2016 09.46 DOCTOR: Alexander Mayberry Interpretating Date/Time 07/23/2016 13:56:10
[2016-07-23] MEDS: ALPRAZolam 0.25 MG TAB PO PRN (15:50)
[2016-07-28] MEDS ORDERED: ISOS30TA3 PO (15:59)
== END 2016-07-23 20:15 | disposition home or self-care (01) | DRG 247 ==
LOC: NEPC 01:15 → NEDA 03:38 → NEDH 11:04 → HCIN 13:20
PROVIDERS: ADMIT Hospitalist; ATTEND Hospitalist
PROC: 4A023N7 Measurement of Cardiac Sampling and Pressure, Left Heart, Percutaneous Approach (ICD-10-PCS; 2016-07-22)
PROC: B2111ZZ Fluoroscopy of Multiple Coronary Arteries using Low Osmolar Contrast (ICD-10-PCS; 2016-07-22)
PROC: B2181ZZ Fluoroscopy of Left Internal Mammary Bypass Graft using Low Osmolar Contrast (ICD-10-PCS; 2016-07-22)
PROC: B2131ZZ Fluoroscopy of Multiple Coronary Artery Bypass Grafts using Low Osmolar Contrast (ICD-10-PCS; 2016-07-22)
PROC: 027034Z Dilation of Coronary Artery, One Artery with Drug-eluting Intraluminal Device, Percutaneous Approach (ICD-10-PCS; principal; 2016-07-22 16:30)
DX: I21.4 Non-ST elevation (NSTEMI) myocardial infarction (principal); N17.9 Acute kidney failure, unspecified; I25.810 Atherosclerosis of coronary artery bypass graft(s) without angina pectoris; I97.610 Postprocedural hemorrhage of a circulatory system organ or structure following a cardiac catheterization; I25.82 Chronic total occlusion of coronary artery; I25.10 Atherosclerotic heart disease of native coronary artery without angina pectoris; E11.9 Type 2 diabetes mellitus without complications; I10 Essential (primary) hypertension; E78.5 Hyperlipidemia, unspecified; I25.2 Old myocardial infarction; Y84.0 Cardiac catheterization as the cause of abnormal reaction of the patient, or of later complication, without mention of misadventure at the time of the procedure; Z95.1 Presence of aortocoronary bypass graft
CPT/HCPCS: 71010; 80048; 80053; 80061; 82550; 83036; 83880; 84484; 85002; 85025; 85610; 85730; 92937; 93005; 93454; 99285; C1760; C1769; C1874; C1887; C1893; G0269; J1200; J1644; J2250; J3010; J3246; J7030; Q9967

== ENCOUNTER 2016-07-27 14:06 | Emergency (ER) | payer MEDICARE ==
[~2016-07-27] VITALS: Ht 172.7 cm; Wt 92.0 kg
[~2016-07-27 14:06] MED LIST: ALPR0.25 PO; AMLO10TA2 PO; ASPI81TA11 PO; FENO160T PO; FURO40TA PO; HYDR50TA15 PO; LISI-519 PO; METO50TA PO; POTA-163 PO; PRAS10TA PO; SIMV40TA PO
[2016-07-27 14:08] VITALS: BP 126/76; PULSE 74; RESP 14; TEMP 97.7; O2SAT 95
[2016-07-27] MEDS ORDERED: imdur (14:47)
[2016-07-27 14:54] VITALS: O2SAT 98
[2016-07-27 15:05] VITALS: BP 126/79; PULSE 68; RESP 18; O2SAT 95
--- NOTE | 2016-07-27 15:12 | PD ---
HPI Chief Complaint: Pain: Acute or Chronic Time Seen by Provider: 14:35 Travel History International Travel<30 days: No Contact w/Intl Traveler<30days: No Traveled to known affect area: No History of Present Illness HPI 66-year-old male complaining of right-sided chest pain and right upper abdominal pain. Patient states that the symptoms started this morning. Patient states that the pain is constant pain accommodation sharp pain into aching pain started the right flank area right low rib cage area with radiation to right scapular area. Patient denies any fever chills. Patient denies any coughing congestion. Patient states the pain is worse with deep breathing. Patient has been taking ibuprofen Tylenol for pain without much relief. Patient has history of CAD status post IA and stent placement in July 22, 2016. Database Manager is Dr. Denney. Patient had cardiac catheter done on July 22, 2016. Patient was discharged home 4 days ago. Patient's on aspirin 81 mg and Effient. Patient has history of hypertension, diabetes, dyslipidemia. PFSH Past Medical History Hx Anticoagulant Therapy: Yes Cardiovascular Problems: Yes (CARDIAC CATH W/1 STENT PLACED 07/22/16) Chest Pain: Yes Congestive Heart Failure: No Coronary Artery Disease: Yes Diabetes: Yes GERD: Yes Genitourinary: Yes (Stage3 kidney disease) Hypertension: Yes Musculoskeletal: No Neurologic: No Respiratory: No Immunizations Current: Yes Myocardial Infarction: Yes Past Surgical History Cardiac Surgery: Yes (cabg) Coronary Artery Bypass Graft: Yes Oral Surgery: Yes (nodules removed from the larynx X2) Social History Alcohol Use: No Tobacco Use: No Substance Use: No Allergies-Medications (Allergen,Severity, Reaction): Coded Allergies: Codeine (Verified Allergy, Unknown, 07/27/16) Reported Meds & Prescriptions Reported Meds & Active Scripts Active Lisinopril 5 Mg Tab 5 Mg PO DAILY Effient (Prasugrel) 10 Mg Tab 10 Mg PO DAILY Aspirin EC (Aspirin) 81 Mg Tabdr 81 Mg PO DAILY Reported [imdur] Alprazolam 0.25 Mg Tab 0.25 Mg PO Q6H PRN Potassium Chloride ER (Potassium Chloride) 20 Meq Tab 20 Meq PO DAILY Furosemide 40 Mg Tab 40 Mg PO DAILY Fenofibrate 160 Mg Tab 160 Mg PO DAILY Simvastatin 40 Mg Tab 40 Mg PO HS Amlodipine (Amlodipine Besylate) 10 Mg Tab 10 Mg PO DAILY Metoprolol Tartrate 50 Mg Tab 50 Mg PO BID Hydralazine (Hydralazine HCl) 50 Mg Tab 50 Mg PO BID Take with a meal Review of Systems General / Constitutional: No: Fever Eyes: No: Visual changes HENT: No: Headaches Cardiovascular: Positive: Chest Pain or Discomfort Respiratory: No: Shortness of Breath Gastrointestinal: No: Abdominal Pain Genitourinary: No: Dysuria Musculoskeletal: No: Pain Skin: No Rash Neurologic: No: Weakness Psychiatric: No: Depression Endocrine: No: Polydipsia Hematologic/Lymphatic: No: Easy Bruising Physical Exam Narrative GENERAL: Well-nourished, well-developed patient. SKIN: Warm and dry. HEAD: Normocephalic. EYES: No scleral icterus. No injection or drainage. NECK: Supple, trachea midline. No JVD or lymphadenopathy. CARDIOVASCULAR: Regular rate and rhythm without murmurs, gallops, or rubs. RESPIRATORY: Breath sounds equal bilaterally. No accessory muscle use. GASTROINTESTINAL: Abdomen soft, nondistended. MUSCULOSKELETAL: No cyanosis, or edema. BACK: Nontender without obvious deformity. No CVA tenderness. Patient had mild to moderate tenderness on palpation right flank area, right upper quadrant of the abdomen. No rebound tenderness. No mass. Data Data Last Documented VS Vital Signs Date Time Temp Pulse Resp B/P Pulse Ox O2 Delivery O2 Flow Rate FiO2 07/27/16 17:26 16 07/27/16 17:12 61 113/77 96 Room Air 07/27/16 14:08 97.7 Orders Electrocardiogram (07/27/16 14:42) Complete Blood Count With Diff (07/27/16 14:42) Comprehensive Metabolic Panel (07/27/16 14:42) Creatine Kinase (Cpk) (07/27/16 14:42) Troponin I (07/27/16 14:42) Prothrombin Time / Inr (Pt) (07/27/16 14:42) Act Partial Throm Time (Ptt) (07/27/16 14:42) Lipase (07/27/16 14:42) Urinalysis - C+S If Indicated (07/27/16 14:42) Iv Access Insert/Monitor (07/27/16 14:42) Ecg Monitoring (07/27/16 14:42) Oximetry (07/27/16 14:42) Ct Abd/Pel W/O Iv Contrast (07/27/16 16:21) Ventilation & Perfusion Scan (07/27/16 16:21) D-Dimer (07/27/16 16:21) Morphine Inj (Morphine Inj) (07/27/16 16:30) Ondansetron Inj (Zofran Inj) (07/27/16 16:30) Labs Laboratory Tests Test 07/27/16 07/27/16 07/27/16 15:03 16:31 16:32 White Blood Count 10.8 TH/MM3 Red Blood Count 4.52 MIL/MM3 Hemoglobin 13.0 GM/DL Hematocrit 37.8 % Mean Corpuscular Volume 83.5 FL Mean Corpuscular Hemoglobin 28.7 PG Mean Corpuscular Hemoglobin 34.4 % Concent Red Cell Distribution Width 14.4 % Platelet Count 282 TH/MM3 Mean Platelet Volume 7.7 FL Neutrophils (%) (Auto) 67.8 % Lymphocytes (%) (Auto) 19.0 % Monocytes (%) (Auto) 8.6 % Eosinophils (%) (Auto) 3.5 % Basophils (%) (Auto) 1.1 % Neutrophils # (Auto) 7.3 TH/MM3 Lymphocytes # (Auto) 2.0 TH/MM3 Monocytes # (Auto) 0.9 TH/MM3 Eosinophils # (Auto) 0.4 TH/MM3 Basophils # (Auto) 0.1 TH/MM3 CBC Comment DIFF FINAL Differential Comment Prothrombin Time 11.5 SEC Prothromb Time International 1.0 RATIO Ratio Activated Partial 29.0 SEC Thromboplast Time Sodium Level 140 MEQ/L Potassium Level 4.1 MEQ/L Chloride Level 105 MEQ/L Carbon Dioxide Level 24.6 MEQ/L Anion Gap 10 MEQ/L Blood Urea Nitrogen 21 MG/DL Creatinine 1.86 MG/DL Estimat Glomerular Filtration 36 ML/MIN Rate Random Glucose 230 MG/DL Calcium Level 9.1 MG/DL Total Bilirubin 0.5 MG/DL Aspartate Amino Transf 25 U/L (AST/SGOT) Alanine Aminotransferase 50 U/L (ALT/SGPT) Alkaline Phosphatase 51 U/L Total Creatine Kinase 148 U/L Troponin I 0.85 NG/ML Total Protein 7.5 GM/DL Albumin 3.6 GM/DL Lipase 201 U/L D-Dimer Quantitative (PE/DVT) 0.61 MG/L FEU Urine Color YELLOW Urine Turbidity CLEAR Urine pH 5.0 Urine Specific [place] 1.016 Urine Protein 30 mg/dL Urine Glucose (UA) NEG mg/dL Urine Ketones NEG mg/dL Urine Occult Blood NEG Urine Nitrite NEG Urine Bilirubin NEG Urine Urobilinogen LESS THAN 2.0 MG/DL Urine Leukocyte Esterase NEG Urine RBC LESS THAN 1 /hpf Urine WBC 1 /hpf Urine Hyaline Casts 6 /lpf Urine Mucus FEW /lpf Microscopic Urinalysis Comment CULT NOT INDICATED MDM Medical Decision Making Medical Screen Exam Complete: Yes Emergency Medical Condition: Yes Interpretation(s) 1619 p.m. CBC within normal limit. BUN 21. Creatinine 1.86. Troponin 0.85. It is trending down form 3.5 on July 21, 2.68 on July 22 and today 0.85. D- dimer 0.61. [address] scan abdomen pelvis show single gallstone in the benign-appearing gallbladder. Negative acute process. VQ scan showed low probability ventilation/perfusion lung scan. Differential Diagnosis Differential diagnosis including musculoskeletal, PE, pneumothorax, pneumonia, acute cholecystitis, colitis, UTI, pyelonephritis, nephrolithiasis. Narrative Course 66-year-old male with right flank pain, right upper quadrant abdominal pain, with radiation to right scapular area. Morphine 2.5 mg IV. Zofran 4 mg IV. Diagnosis Primary Impression: Chest wall pain Additional Impression: Renal insufficiency Patient Instructions: General Instructions Additional Instructions: Take medication as needed for pain. Follow-up with personal physician. Return if increasing chest pain or shortness of breath. Med/Other Pt SpecificInfo: Prescription(s) given Scripts Hydrocodone-Acetaminophen ([place])5-325 mg Tab1 Tab PO Q6H PRN (PAIN) #30 TAB Prov:John Dumont MD 07/27/16 Disposition: 01 DISCHARGE HOME Condition: Stable John Dumont MD Jul 27, 2016 15:12
[2016-07-27 15:15] LABS: AUTOMATED NEUTROPHIL # 7.3 TH/MM3 (1.8-7.7); BASOPHIL # 0.1 TH/MM3 (0-0.2); BASOPHIL % 1.1 % (0.0-2.0); EOSINOPHIL # 0.4 TH/MM3 (0-0.4); EOSINOPHIL % 3.5 % (0.0-4.0); HEMATOCRIT 37.8 % (39.0-51.0); HEMO FLAGS DIFF FINAL; MEAN CELL VOLUME 83.5 FL (80.0-100.0); MEAN CORPUSCULAR HEMOGLOBIN 28.7 PG (27.0-34.0); MEAN CORPUSCULAR HGB CONC 34.4 % (32.0-36.0); MONO % 8.6 % (0.0-8.0); NEUT % 67.8 % (16.0-70.0); PLATELET COUNT 282 TH/MM3 (150-450); RED BLOOD COUNT 4.52 MIL/MM3 (4.50-5.90); RED CELL DISTRIBUTION WIDTH 14.4 % (11.6-17.2); WHITE BLOOD COUNT 10.8 TH/MM3 (4.0-11.0)
[2016-07-27 15:30] LABS: PROTHROMBIN TIME - PATIENT 11.5 SEC (9.8-11.6)
[2016-07-27 15:47] LABS: ANION GAP 10 MEQ/L (5-15); AST (GOT) 25 U/L (15-37); BICARBONATE 24.6 MEQ/L (21.0-32.0); BLOOD UREA NITROGEN 21 MG/DL (7-18); CHLORIDE 105 MEQ/L (98-107); GLOMERULAR FILTRATION RATE 36 ML/MIN (>89); POTASSIUM 4.1 MEQ/L (3.5-5.1); SODIUM (NA) 140 MEQ/L (136-145)
[2016-07-27 15:52] LABS: ALKALINE PHOSPHATASE 51 U/L (45-117); ALT (GPT) 50 U/L (12-78); CREATINE KINASE 148 U/L (39-308); TOTAL BILIRUBIN ADULT 0.5 MG/DL (0.2-1.0)
[2016-07-27] MEDS ORDERED: ONDANSETRON HCL 4 MG/2 ML VIAL IV PUSH ONE (16:30)
[2016-07-27] MEDS ORDERED: MORPHINE SULFATE 4 MG/ML INJ IV PUSH ONE (16:30)
[2016-07-27 16:53] LABS: BLOOD, URINE NEG (NEG); COMMENT (UR) CULT NOT INDICATED; CULTURE IF INDICATED CULT NOT INDICATED; GLUCOSE,URINE NEG (NEG); HYALINE CAST, URINE 6 /lpf (RARE); KETONE, URINE NEG (NEG); MUCUS URINE FEW /lpf (OCC); NITRITE,URINE NEG (NEG); URINE COLOR YELLOW (YELLW/STRAW)
[2016-07-27 17:12] VITALS: BP 113/77; PULSE 61; RESP 16; O2SAT 96
--- NOTE | 2016-07-27 17:18 | RADRPT ---
EXAM DATE/TIME: 07/27/2016 16:47 [facility] COMPARISON: No previous studies available for comparison. INDICATIONS : Right upper quadrant pain. ORAL CONTRAST: No oral contrast ingested. RADIATION DOSE: 10.33 CTDIvol (mGy) MEDICAL HISTORY : Renal failure, chronic. Diabetes mellitus type 2. Hypertension. SURGICAL HISTORY : CABG ENCOUNTER: Initial ACUITY: 1 day PAIN SCALE: 5/10 LOCATION: Right upper quadrant TECHNIQUE: Volumetric scanning of the abdomen and pelvis was performed. Using automated exposure control and ad justment of the mA and/or kV according to patient size, radiation dose was kept as low as reasonably achievable to obtain optimal diagnostic quality images. FINDINGS: There is a 7 mm nodule seen on the high slice in the lung that appears to be thickening of the fissur e. Lung bases are otherwise clear. Minimal calcification is seen in the right coronary artery. Gallstone is seen in a benign-appearing gallbladder. The liver, spleen and pancreas are unremarkable . The right kidney is normal. Spontaneously dense left renal cyst is noted measuring less than 1 cm . Pelvic contents are unremarkable. There are scattered diverticula in the sigmoid colon. Abdominal w all is intact without ascites or adenopathy. Review of bone windows reveals a hemangioma in the T11 vertebral body. No other bony abnormality is appreciated. CONCLUSION: 1. Single gallstone in a benign-appearing gallbladder. 2. Otherwise, negative for an acute process. Gomez Rea MD FACR on July 27, 2016 at 17:11 Board Certified Radiologist. This report was verified electronically.
[2016-07-27 17:26] VITALS: RESP 16
--- NOTE | 2016-07-27 18:18 | RADRPT ---
EXAM DATE/TIME: 07/27/2016 17:50 [facility] COMPARISON: No previous studies available for comparison. INDICATIONS : Right sided chest pain for 1 day. DOSE: 8.1 mCi Tc99m MAA IV 0.8 mCi Tc99m DTPA aerosol MEDICAL HISTORY : Renal disease, end stage. Myocardial infarction. Hypertension. SURGICAL HISTORY : Coronary artery stent. Oral surgery. ENCOUNTER: Initial ACUITY: 1 day PAIN SCALE: 2/10 LOCATION: Right chest TECHNIQUE: Following five minutes of tidal breathing of DTPA aerosol, planar images of the lungs were performed in eight projections. The patient was then injected with MAA, and eight-view perfusio n scan was performed. FINDINGS: There is a homogeneous pattern of aerosol delivery to the periphery of both lungs. No focal ventilat ory defects are seen. The perfusion lung scan demonstrates a homogenous pattern of uptake in both lungs. No segmental or s ubsegmental defects are seen. CONCLUSION: Low Probability ventilation/perfusion lung scan. Gomez Rea MD FACR on July 27, 2016 at 18:16 Board Certified Radiologist. This report was verified electronically.
[2016-07-27] MEDS ORDERED: NORC5TAB PO (19:43)
[2016-07-27 19:44] VITALS: BP 120/72
--- NOTE | 2016-07-28 13:38 | EKG ---
Date Performed: 07/27/2016 Time Performed: 15:00:10 PTAGE: 66 years EKG: Sinus rhythm ST DEVIATION AND MODERATE T-WAVE ABNORMALITY, CONSIDER LATERAL ISCHEMIA ABNORMAL ECG Compared to sanchez or tracing no significant change PREVIOUS TRACING : 07/23/2016 05.24 DOCTOR: Sal Gil Interpretating Date/Time 07/28/2016 13:36:01
[2016-07-28] MEDS ORDERED: ISOS30TA3 PO (15:59)
== END 2016-07-27 19:52 | disposition home or self-care (01) ==
LOC: NEPA 14:06
DX: R07.89 Other chest pain (principal); I25.10 Atherosclerotic heart disease of native coronary artery without angina pectoris; I25.2 Old myocardial infarction; I10 Essential (primary) hypertension; E78.5 Hyperlipidemia, unspecified; E11.9 Type 2 diabetes mellitus without complications; K21.9 Gastro-esophageal reflux disease without esophagitis; R94.31 Abnormal electrocardiogram [ECG] [EKG]
CPT/HCPCS: 74176; 78582; 80053; 81001; 82550; 83690; 84484; 85025; 85379; 85610; 85730; 93005; 96374; 96375; 99284; A9540; A9567; J2270; J2405